=== PATIENT | female | born 1945 | race Caucasian/White ===

== ENCOUNTER 2020-11-01 11:38 | Outpatient (CLI) | payer MEDICARE, SELFPAY ==
[2020-11-01 12:03] LABS: Basophils Percent Auto 0.4 % (0.2-1.2); Eosinophils Absolute Auto 0.1 K/mm3 (0-0.3); Eosinophils Percent Auto 0.9 % (0-4.4); Hematocrit 47.1 % (37.0-47.0); Hemoglobin 14.7 g/dL (12.0-15.0); Immature Granulocyte Absolute 0.03 K/mm3 (0.00-0.031); Immature Granulocyte Percent A 0.3 % (0-0.5); Lymphocytes Percent Auto 49.7 % (18.3-44.2); Mean Corpuscular HGB Conc 31.2 g/dl (32-36); Mean Corpuscular Hemoglobin 30.4 pg (26-34); Mean Corpuscular Volume 97.3 fl (80-100); Mean Platelet Volume 9.5 fl (7.4-10.4); Monocytes Absolute Auto 0.5 K/mm3 (0.1-0.6); Monocytes Percent Auto 4.8 % (2.6-8.5); Neutrophils Absolute Auto 4.5 K/mm3 (1.3-6.7); Neutrophils Percent Auto 43.9 % (45.5-73.1); Platelet Count Result 238 k/mm3 (150-375); Red Blood Count 4.84 M/mm3 (4.2-5.4); Red Cell Distribution Width 12.7 % (11.5-14.5); White Blood Count 10.3 K/mm3 (4.5-10.0)
[2020-11-01 12:48] LABS: Erythrocyte Sedimentation Rate 7 mm/hr (0-20)
[2020-11-01 17:46] LABS: Alanine Aminotransferase 22 U/L (4-35); Albumin Level 4.5 g/dL (3.5-5.1); Alkaline Phosphatase 66 U/L (38-126); Anion Gap 5 mmol/L (8-16); Aspartate Amino Transferase 31 U/L (14-36); Bilirubin,Total 0.7 mg/dL (0.2-1.3); Blood Urea Nitrogen 21 mg/dL (7-17); CRP < 0.5 mg/dL (<1.0); Carbon Dioxide 31 mmol/L (22-30); Chloride 105 mmol/L (98-107); Estimated Glomerular Filt Rate > 60; Glucose 105 mg/dL (65-105); Lactate Dehydrogenase 475 U/L (313-618); Potassium 4.4 mmol/L (3.4-5.0); Sodium 141 mmol/L (137-145)
== END 2020-11-01 11:39 | disposition home or self-care (01) ==
LOC: ANHLAB 11:40
PROVIDERS: PCP Family Medicine; Visit Provider Internal Medicine Hematology & Oncology
DX: D72.820 Lymphocytosis (symptomatic) (principal)
CPT/HCPCS: 36415; 80053; 83615; 85025; 85652; 86140; 88184; 88185

== ENCOUNTER 2021-03-22 09:06 | Outpatient (CLI) | payer MEDICARE, SELFPAY ==
[2021-03-22 09:21] LABS: Basophils Absolute Auto 0.1 K/mm3 (0.0-0.1); Basophils Percent Auto 0.5 % (0.2-1.2); Eosinophils Absolute Auto 0.1 K/mm3 (0-0.3); Eosinophils Percent Auto 1.3 % (0-4.4); Hematocrit 44.8 % (37.0-47.0); Hemoglobin 14.4 g/dL (12.0-15.0); Immature Granulocyte Absolute 0.02 K/mm3 (0.00-0.031); Immature Granulocyte Percent A 0.2 % (0-0.5); Lymphocytes Absolute Auto 6.48 K/mm3 (0.9-3.2); Lymphocytes Percent Auto 58.4 % (18.3-44.2); Mean Corpuscular HGB Conc 32.1 g/dl (32-36); Mean Corpuscular Volume 96.3 fl (80-100); Mean Platelet Volume 9.2 fl (7.4-10.4); Monocytes Absolute Auto 0.6 K/mm3 (0.1-0.6); Monocytes Percent Auto 5.8 % (2.6-8.5); Neutrophils Absolute Auto 3.8 K/mm3 (1.3-6.7); Neutrophils Percent Auto 33.8 % (45.5-73.1); Platelet Count Result 206 k/mm3 (150-375); Red Blood Count 4.65 M/mm3 (4.2-5.4); Red Cell Distribution Width 12.8 % (11.5-14.5); White Blood Count 11.1 K/mm3 (4.5-10.0)
[2021-03-22 12:11] LABS: Alanine Aminotransferase 19 U/L (4-35); Albumin Level 4.4 g/dL (3.5-5.1); Alkaline Phosphatase 63 U/L (38-126); Anion Gap 10 mmol/L (8-16); Aspartate Amino Transferase 30 U/L (14-36); Bilirubin,Total 0.8 mg/dL (0.2-1.3); Blood Urea Nitrogen 23 mg/dL (7-17); Calcium 10.2 mg/dL (8.4-10.2); Carbon Dioxide 29 mmol/L (22-30); Chloride 103 mmol/L (98-107); Estimated Glomerular Filt Rate > 60; Glucose 84 mg/dL (65-105); Sodium 142 mmol/L (137-145)
[2021-03-22 12:19] LABS: Lactate Dehydrogenase 473 U/L (313-618)
== END 2021-03-22 09:07 | disposition home or self-care (01) ==
LOC: ANHLAB 09:10
PROVIDERS: PCP Family Medicine; Visit Provider Internal Medicine Hematology & Oncology
DX: C91.10 Chronic lymphocytic leukemia of B-cell type not having achieved remission (principal)
CPT/HCPCS: 36415; 80053; 83615; 85025

== ENCOUNTER 2021-07-14 09:58 | Outpatient (CLI) | payer MEDICARE, SELFPAY ==
[2021-07-14 11:53] LABS: Basophils Absolute Auto 0.1 K/mm3 (0.0-0.1); Basophils Percent Auto 0.5 % (0.2-1.2); Eosinophils Absolute Auto 0.1 K/mm3 (0-0.3); Eosinophils Percent Auto 1.1 % (0-4.4); Hematocrit 46.1 % (37.0-47.0); Hemoglobin 14.7 g/dL (12.0-15.0); Immature Granulocyte Absolute 0.02 K/mm3 (0.00-0.031); Immature Granulocyte Percent A 0.2 % (0-0.5); Lymphocytes Absolute Auto 6.16 K/mm3 (0.9-3.2); Lymphocytes Percent Auto 57.4 % (18.3-44.2); Mean Corpuscular HGB Conc 31.9 g/dl (32-36); Mean Corpuscular Hemoglobin 31.2 pg (26-34); Mean Corpuscular Volume 97.9 fl (80-100); Mean Platelet Volume 10.2 fl (7.4-10.4); Monocytes Absolute Auto 0.6 K/mm3 (0.1-0.6); Monocytes Percent Auto 5.5 % (2.6-8.5); Neutrophils Absolute Auto 3.8 K/mm3 (1.3-6.7); Neutrophils Percent Auto 35.3 % (45.5-73.1); Platelet Count Result 221 k/mm3 (150-375); Red Blood Count 4.71 M/mm3 (4.2-5.4); Red Cell Distribution Width 12.3 % (11.5-14.5); White Blood Count 10.7 K/mm3 (4.5-10.0)
[2021-07-14 11:59] LABS: Atypical Lymphocytes Present; Platelet Estimate Adequate (Adequate)
[2021-07-14 12:22] LABS: Lactate Dehydrogenase 455 U/L (313-618)
== END 2021-07-14 09:59 | disposition home or self-care (01) ==
LOC: ANHLAB 10:00
PROVIDERS: PCP Family Medicine; Visit Provider Internal Medicine Hematology & Oncology
DX: C91.10 Chronic lymphocytic leukemia of B-cell type not having achieved remission (principal)
CPT/HCPCS: 36415; 83615; 85025

== ENCOUNTER 2022-01-08 10:03 | Outpatient (CLI) | payer MEDICARE, SELFPAY ==
[2022-01-08 10:21] LABS: Basophils Absolute Auto 0.1 K/mm3 (0.0-0.1); Basophils Percent Auto 0.4 % (0.2-1.2); Eosinophils Absolute Auto 0.2 K/mm3 (0-0.3); Eosinophils Percent Auto 1.3 % (0-4.4); Hematocrit 46.5 % (37.0-47.0); Hemoglobin 14.6 g/dL (12.0-15.0); Immature Granulocyte Absolute 0.02 K/mm3 (0.00-0.031); Immature Granulocyte Percent A 0.2 % (0-0.5); Lymphocytes Absolute Auto 6.99 K/mm3 (0.9-3.2); Lymphocytes Percent Auto 59.1 % (18.3-44.2); Mean Corpuscular HGB Conc 31.4 g/dl (32-36); Mean Corpuscular Hemoglobin 32.2 pg (26-34); Mean Corpuscular Volume 102.4 fl (80-100); Mean Platelet Volume 9.1 fl (7.4-10.4); Monocytes Absolute Auto 0.6 K/mm3 (0.1-0.6); Platelet Count Result 208 k/mm3 (150-375); Red Blood Count 4.54 M/mm3 (4.2-5.4); Red Cell Distribution Width 12.4 % (11.5-14.5); White Blood Count 11.8 K/mm3 (4.5-10.0)
[2022-01-08 10:33] LABS: Atypical Lymphocytes Present; Platelet Estimate Adequate (Adequate)
[2022-01-08 17:58] LABS: Alanine Aminotransferase 21 U/L (4-35); Albumin Level 4.6 g/dL (3.5-5.1); Alkaline Phosphatase 63 U/L (38-126); Anion Gap 6 mmol/L (8-16); Aspartate Amino Transferase 30 U/L (14-36); Bilirubin,Total 0.7 mg/dL (0.2-1.3); Blood Urea Nitrogen 25 mg/dL (7-17); Calcium 9.6 mg/dL (8.4-10.2); Carbon Dioxide 30 mmol/L (22-30); Chloride 102 mmol/L (98-107); Estimated Glomerular Filt Rate > 60; Glucose 83 mg/dL (65-110); Lactate Dehydrogenase 452 U/L (313-618); Potassium 3.6 mmol/L (3.4-5.0); Sodium 138 mmol/L (137-145)
== END 2022-01-08 10:04 | disposition home or self-care (01) ==
LOC: ANHLAB 10:08
PROVIDERS: PCP Family Medicine; Visit Provider Internal Medicine Hematology & Oncology
DX: C91.10 Chronic lymphocytic leukemia of B-cell type not having achieved remission (principal)
CPT/HCPCS: 36415; 80053; 83615; 85025

== ENCOUNTER 2022-08-01 09:28 | Outpatient (CLI) | payer MEDICARE, SELFPAY ==
[2022-08-01 18:51] LABS: Hematocrit 45.8 % (37.0-47.0); Hemoglobin 14.9 g/dL (12.0-15.0); Mean Corpuscular HGB Conc 32.5 g/dl (32-36); Mean Corpuscular Hemoglobin 31.4 pg (26-34); Mean Corpuscular Volume 96.4 fl (80-100); Mean Platelet Volume 10.2 fl (7.4-10.4); Platelet Count Result 227 k/mm3 (150-375); Red Blood Count 4.75 M/mm3 (4.2-5.4); White Blood Count 13.3 K/mm3 (4.5-10.0)
[2022-08-01 19:03] LABS: Alanine Aminotransferase 20 U/L (6-35); Albumin Level 4.6 g/dL (3.5-5.1); Alkaline Phosphatase 69 U/L (38-126); Anion Gap 11 mmol/L (8-16); Aspartate Amino Transferase 31 U/L (14-36); Blood Urea Nitrogen 23 mg/dL (7-17); Calcium 9.4 mg/dL (8.4-10.2); Carbon Dioxide 26 mmol/L (22-30); Chloride 102 mmol/L (98-107); Cholesterol 210 mg/dL (0-200); Estimated Glomerular Filt Rate > 60; Glucose 107 mg/dL (65-110); HDL Direct 74 mg/dL; Potassium 3.7 mmol/L (3.4-5.0); Sodium 139 mmol/L (137-145); Triglycerides 76 mg/dL (<150)
[2022-08-01 19:16] LABS: LDL Cholesterol Direct 79 mg/dL
[2022-08-01 19:23] LABS: Band Neutrophils Percent 3 % (0-6); Lymphocytes Absolute Manual 7.44 K/mm3 (1.1-4.5); Monocytes Absolute Manual 1.46 K/mm3 (0.1-0.90); Monocytes Percent Manual 11 % (3-9); Neutrophils Absolute Manual 4.38 K/mm3 (1.7-7.2); Neutrophils Percent Manual 30 % (46-73); Total Cells Counted 100
[2022-08-01 19:24] LABS: Platelet Estimate Adequate (Adequate); Schistocytes None Seen (NORMAL)
== END 2022-08-01 09:29 | disposition home or self-care (01) ==
LOC: ANHGOSHLAB 09:32
PROVIDERS: PCP Family Medicine; Visit Provider Family Medicine
DX: E55.9 Vitamin D deficiency, unspecified (principal); I10 Essential (primary) hypertension; E53.8 Deficiency of other specified B group vitamins; E78.5 Hyperlipidemia, unspecified
CPT/HCPCS: 36415; 80053; 80061; 82306; 82607; 84443; 85025

== ENCOUNTER 2022-10-08 10:27 | Outpatient (CLI) | payer MEDICARE, SELFPAY ==
[2022-10-08 10:44] LABS: Hematocrit 44.8 % (37.0-47.0); Hemoglobin 14.3 g/dL (12.0-15.0); Mean Corpuscular HGB Conc 31.9 g/dl (32-36); Mean Corpuscular Hemoglobin 31.8 pg (26-34); Mean Corpuscular Volume 99.8 fl (80-100); Mean Platelet Volume 9.2 fl (7.4-10.4); Platelet Count Result 211 k/mm3 (150-375); Red Blood Count 4.49 M/mm3 (4.2-5.4); Red Cell Distribution Width 12.5 % (11.5-14.5); White Blood Count 13.1 K/mm3 (4.5-10.0)
[2022-10-08 10:58] LABS: Band Neutrophils Percent 1 % (0-6); Basophils Absolute Manual 0.13 K/mm3 (0.0-0.1); Basophils Percent Manual 1 % (0-1); Neutrophils Absolute Manual 4.06 K/mm3 (1.7-7.2); Neutrophils Percent Manual 30 % (46-73); Nucleated Red Blood Cells 2 %; Platelet Estimate Adequate (Adequate); Schistocytes None Seen (NORMAL); Total Cells Counted 100
[2022-10-08 10:59] LABS: Atypical Lymphocytes Present
[2022-10-08 12:29] LABS: Alanine Aminotransferase 21 U/L (6-35); Albumin Level 4.4 g/dL (3.5-5.1); Alkaline Phosphatase 61 U/L (38-126); Anion Gap 6 mmol/L (8-16); Aspartate Amino Transferase 27 U/L (14-36); Bilirubin,Total 0.9 mg/dL (0.2-1.3); Blood Urea Nitrogen 24 mg/dL (7-17); Calcium 9.1 mg/dL (8.4-10.2); Carbon Dioxide 31 mmol/L (22-30); Chloride 104 mmol/L (98-107); Estimated Glomerular Filt Rate 53; Glucose 143 mg/dL (65-110); Lactate Dehydrogenase 193 U/L (120-246); Sodium 141 mmol/L (137-145)
== END 2022-10-08 10:28 | disposition home or self-care (01) ==
LOC: ANHLAB 10:28
PROVIDERS: PCP Family Medicine; Visit Provider Internal Medicine Hematology & Oncology
DX: C91.10 Chronic lymphocytic leukemia of B-cell type not having achieved remission (principal)
CPT/HCPCS: 36415; 80053; 83615; 85025

== ENCOUNTER 2023-02-20 12:35 | Outpatient (CLI) | payer MEDICARE, SELFPAY ==
[2023-02-20 19:46] LABS: Alanine Aminotransferase 19 U/L (6-35); Albumin Level 4.4 g/dL (3.5-5.1); Alkaline Phosphatase 65 U/L (38-126); Anion Gap 4 mmol/L (8-16); Aspartate Amino Transferase 41 U/L (14-36); Bilirubin,Total 0.8 mg/dL (0.2-1.3); Blood Urea Nitrogen 19 mg/dL (7-17); Calcium 9.3 mg/dL (8.4-10.2); Carbon Dioxide 32 mmol/L (22-30); Chloride 104 mmol/L (98-107); Estimated Glomerular Filt Rate 60; Glucose 87 mg/dL (65-110); Potassium 4.4 mmol/L (3.4-5.0); Sodium 140 mmol/L (137-145)
== END 2023-02-20 12:36 | disposition home or self-care (01) ==
LOC: ANHGOSHLAB 12:37
PROVIDERS: PCP Family Medicine; Visit Provider Family Medicine
DX: C91.10 Chronic lymphocytic leukemia of B-cell type not having achieved remission (principal); E78.5 Hyperlipidemia, unspecified; I10 Essential (primary) hypertension
CPT/HCPCS: 36415; 80053

== ENCOUNTER 2023-07-10 09:40 | Outpatient (CLI) | payer MEDICARE, SELFPAY ==
[2023-07-10 10:14] LABS: Basophils Absolute Auto 0.1 K/mm3 (0.0-0.1); Basophils Percent Auto 0.5 % (0.2-1.2); Eosinophils Absolute Auto 0.2 K/mm3 (0-0.3); Eosinophils Percent Auto 1.6 % (0-4.4); Hematocrit 44.4 % (37.0-47.0); Hemoglobin 14.3 g/dL (12.0-15.0); Immature Granulocyte Absolute 0.03 K/mm3 (0.00-0.031); Immature Granulocyte Percent A 0.2 % (0-0.5); Lymphocytes Absolute Auto 9.72 K/mm3 (0.9-3.2); Lymphocytes Percent Auto 65.9 % (18.3-44.2); Mean Corpuscular HGB Conc 32.2 g/dl (32-36); Mean Corpuscular Hemoglobin 31.6 pg (26-34); Mean Corpuscular Volume 98.2 fl (80-100); Mean Platelet Volume 9.4 fl (7.4-10.4); Monocytes Absolute Auto 0.7 K/mm3 (0.1-0.6); Monocytes Percent Auto 4.5 % (2.6-8.5); Neutrophils Percent Auto 27.3 % (45.5-73.1); Platelet Count Result 193 k/mm3 (150-375); Red Blood Count 4.52 M/mm3 (4.2-5.4); Red Cell Distribution Width 12.4 % (11.5-14.5); White Blood Count 14.8 K/mm3 (4.5-10.0)
[2023-07-10 12:12] LABS: Alanine Aminotransferase 17 U/L (6-35); Albumin Level 4.4 g/dL (3.5-5.1); Alkaline Phosphatase 67 U/L (38-126); Anion Gap 4 mmol/L (8-16); Aspartate Amino Transferase 50 U/L (14-36); Bilirubin,Total 0.8 mg/dL (0.2-1.3); Blood Urea Nitrogen 26 mg/dL (7-17); Calcium 9.3 mg/dL (8.4-10.2); Carbon Dioxide 30 mmol/L (22-30); Chloride 104 mmol/L (98-107); Estimated Glomerular Filt Rate 60; Glucose 107 mg/dL (65-110); Sodium 138 mmol/L (137-145)
== END 2023-07-10 09:41 | disposition home or self-care (01) ==
PROVIDERS: PCP Family Medicine; Visit Provider Internal Medicine Hematology & Oncology
DX: C91.10 Chronic lymphocytic leukemia of B-cell type not having achieved remission (principal)
CPT/HCPCS: 36415; 80053; 85025

== ENCOUNTER 2023-08-07 08:56 | Outpatient (CLI) | payer MEDICARE, SELFPAY ==
[2023-08-07 19:06] LABS: Hematocrit 44.9 % (37.0-47.0); Hemoglobin 14.4 g/dL (12.0-15.0); Mean Corpuscular HGB Conc 32.1 g/dl (32-36); Mean Corpuscular Hemoglobin 31.6 pg (26-34); Mean Corpuscular Volume 98.5 fl (80-100); Mean Platelet Volume 10.3 fl (7.4-10.4); Platelet Count Result 223 k/mm3 (150-375); Red Blood Count 4.56 M/mm3 (4.2-5.4); Red Cell Distribution Width 12.8 % (11.5-14.5); White Blood Count 14.1 K/mm3 (4.5-10.0)
[2023-08-07 19:58] LABS: Vitamin D 25 Hydroxy 33.7 ng/mL
[2023-08-07 20:24] LABS: Alanine Aminotransferase 16 U/L (6-35); Albumin Level 4.5 g/dL (3.5-5.1); Alkaline Phosphatase 67 U/L (38-126); Anion Gap 10 mmol/L (8-16); Aspartate Amino Transferase 38 U/L (14-36); Blood Urea Nitrogen 23 mg/dL (7-17); Calcium 9.7 mg/dL (8.4-10.2); Carbon Dioxide 28 mmol/L (22-30); Chloride 102 mmol/L (98-107); Cholesterol 201 mg/dL (0-200); Estimated Glomerular Filt Rate 60; Glucose 110 mg/dL (65-110); HDL Direct 72 mg/dL; Potassium 4.3 mmol/L (3.4-5.0); Sodium 140 mmol/L (137-145); Triglycerides 74 mg/dL (<150)
[2023-08-07 20:35] LABS: Band Neutrophils Percent 2 % (0-6); Lymphocytes Absolute Manual 7.75 K/mm3 (1.1-4.5); Monocytes Percent Manual 5 % (3-9); Neutrophils Absolute Manual 5.64 K/mm3 (1.7-7.2); Neutrophils Percent Manual 38 % (46-73); Total Cells Counted 100
[2023-08-07 20:36] LABS: Platelet Estimate Adequate (Adequate); Schistocytes None Seen (NORMAL)
[2023-08-07 20:38] LABS: LDL Cholesterol Direct 82 mg/dL
[2023-08-07 21:57] LABS: Hemoglobin A1C 5.5 % (<5.7)
== END 2023-08-07 08:57 | disposition home or self-care (01) ==
PROVIDERS: PCP Family Medicine; Visit Provider Family Medicine
DX: C91.10 Chronic lymphocytic leukemia of B-cell type not having achieved remission (principal); I10 Essential (primary) hypertension; E78.5 Hyperlipidemia, unspecified; E53.8 Deficiency of other specified B group vitamins; R73.9 Hyperglycemia, unspecified; E55.9 Vitamin D deficiency, unspecified
CPT/HCPCS: 36415; 80053; 80061; 82306; 82607; 83036; 84443; 85025

== ENCOUNTER 2024-04-13 09:38 | Outpatient (CLI) | payer MEDICARE, SELFPAY ==
[2024-04-13 09:59] LABS: Basophils Absolute Auto 0.1 K/mm3 (0.0-0.1); Basophils Percent Auto 0.4 % (0.2-1.2); Eosinophils Absolute Auto 0.2 K/mm3 (0-0.3); Eosinophils Percent Auto 1.2 % (0-4.4); Hematocrit 44.1 % (37.0-47.0); Hemoglobin 14.3 g/dL (12.0-15.0); Immature Granulocyte Absolute 0.03 K/mm3 (0.00-0.031); Immature Granulocyte Percent A 0.2 % (0-0.5); Lymphocytes Absolute Auto 9.04 K/mm3 (0.9-3.2); Lymphocytes Percent Auto 64.7 % (18.3-44.2); Mean Corpuscular HGB Conc 32.4 g/dl (32-36); Mean Corpuscular Hemoglobin 31.9 pg (26-34); Mean Corpuscular Volume 98.4 fl (80-100); Mean Platelet Volume 9.4 fl (7.4-10.4); Monocytes Absolute Auto 0.6 K/mm3 (0.1-0.6); Monocytes Percent Auto 4.3 % (2.6-8.5); Neutrophils Absolute Auto 4.1 K/mm3 (1.3-6.7); Neutrophils Percent Auto 29.2 % (45.5-73.1); Platelet Count Result 198 k/mm3 (150-375); Red Blood Count 4.48 M/mm3 (4.2-5.4); Red Cell Distribution Width 12.4 % (11.5-14.5)
[2024-04-13 10:01] LABS: Blood Urea Nitrogen 26 mg/dL (8-26); Carbon Dioxide 29 mmol/L (22-30); Chloride 104 mmol/L (98-109); Estimated Glomerular Filt Rate 48; Glucose 104 mg/dL (70-105); Ionized Calcium (POC) 1.24 mmol/L (1.11-1.31); Potassium 3.8 mmol/L (3.5-4.9); Sodium 141 mmol/L (138-146)
[2024-04-13 10:02] LABS: Atypical Lymphocytes Present; Platelet Estimate Adequate (Adequate); Schistocytes None Seen
== END 2024-04-13 09:39 | disposition home or self-care (01) ==
LOC: ANHLAB 09:40
PROVIDERS: PCP Family Medicine; Visit Provider Internal Medicine Hematology & Oncology
DX: C91.10 Chronic lymphocytic leukemia of B-cell type not having achieved remission (principal)
CPT/HCPCS: 36415; 80047; 85025

== ENCOUNTER 2024-08-26 13:53 | Outpatient (CLI) | payer MEDICARE, SELFPAY ==
[2024-08-26 18:56] LABS: Basophils Absolute Auto 0.1 K/mm3 (0.0-0.1); Basophils Percent Auto 0.6 % (0.2-1.2); Eosinophils Absolute Auto 0.1 K/mm3 (0-0.3); Eosinophils Percent Auto 0.7 % (0-4.4); Hematocrit 48.4 % (37.0-47.0); Hemoglobin 15.5 g/dL (12.0-15.0); Immature Granulocyte Absolute 0.03 K/mm3 (0.00-0.031); Immature Granulocyte Percent A 0.2 % (0-0.5); Lymphocytes Absolute Auto 9.95 K/mm3 (0.9-3.2); Lymphocytes Percent Auto 65.7 % (18.3-44.2); Mean Corpuscular Hemoglobin 31.6 pg (26-34); Mean Corpuscular Volume 98.6 fl (80-100); Mean Platelet Volume 10.4 fl (7.4-10.4); Monocytes Absolute Auto 0.6 K/mm3 (0.1-0.6); Monocytes Percent Auto 4.2 % (2.6-8.5); Neutrophils Absolute Auto 4.3 K/mm3 (1.3-6.7); Neutrophils Percent Auto 28.6 % (45.5-73.1); Platelet Count Result 223 k/mm3 (150-375); Red Blood Count 4.91 M/mm3 (4.2-5.4); Red Cell Distribution Width 12.8 % (11.5-14.5); White Blood Count 15.1 K/mm3 (4.5-10.0)
[2024-08-26 21:11] LABS: Alanine Aminotransferase 19 U/L (6-35); Albumin Level 4.5 g/dL (3.5-5.1); Alkaline Phosphatase 86 U/L (38-126); Anion Gap 6 mmol/L (4-12); Aspartate Amino Transferase 58 U/L (14-36); Bilirubin,Total 0.7 mg/dL (0.2-1.3); Blood Urea Nitrogen 26 mg/dL (7-17); Calcium 9.4 mg/dL (8.4-10.2); Carbon Dioxide 27 mmol/L (22-30); Chloride 105 mmol/L (98-107); Cholesterol 211 mg/dL (0-200); Estimated Glomerular Filt Rate 60; Glucose 95 mg/dL (65-110); HDL Direct 76 mg/dL; Potassium 4.4 mmol/L (3.4-5.0); Sodium 138 mmol/L (137-145); Triglycerides 135 mg/dL (<150)
[2024-08-26 21:22] LABS: LDL Cholesterol Direct 72 mg/dL
[2024-08-26 22:26] LABS: Vitamin D 25 Hydroxy 27.7 ng/mL
== END 2024-08-26 13:54 | disposition home or self-care (01) ==
LOC: ANHGOSHLAB 13:54
PROVIDERS: PCP Family Medicine; Visit Provider Nurse Practitioner Family
DX: E78.5 Hyperlipidemia, unspecified (principal); I10 Essential (primary) hypertension; E55.9 Vitamin D deficiency, unspecified
CPT/HCPCS: 36415; 80053; 80061; 82306; 84443; 85025

== ENCOUNTER 2025-01-22 12:13 | Outpatient (CLI) | payer MEDICARE, SELFPAY ==
[2025-01-22 12:28] LABS: Basophils Absolute Auto 0.1 K/mm3 (0.0-0.1); Basophils Percent Auto 0.5 % (0.2-1.2); Eosinophils Absolute Auto 0.2 K/mm3 (0-0.3); Hematocrit 47.1 % (37.0-47.0); Hemoglobin 15.2 g/dL (12.0-15.0); Immature Granulocyte Absolute 0.04 K/mm3 (0.00-0.031); Immature Granulocyte Percent A 0.3 % (0-0.5); Lymphocytes Absolute Auto 9.83 K/mm3 (0.9-3.2); Lymphocytes Percent Auto 63.5 % (18.3-44.2); Mean Corpuscular HGB Conc 32.3 g/dl (32-36); Mean Corpuscular Hemoglobin 31.7 pg (26-34); Mean Corpuscular Volume 98.3 fl (80-100); Mean Platelet Volume 9.5 fl (7.4-10.4); Monocytes Absolute Auto 0.7 K/mm3 (0.1-0.6); Monocytes Percent Auto 4.7 % (2.6-8.5); Neutrophils Absolute Auto 4.7 K/mm3 (1.3-6.7); Platelet Count Result 221 k/mm3 (150-375); Red Blood Count 4.79 M/mm3 (4.2-5.4); Red Cell Distribution Width 12.4 % (11.5-14.5); White Blood Count 15.5 K/mm3 (4.5-10.0)
[2025-01-22 12:28] LABS: Blood Urea Nitrogen 26 mg/dL (8-26); Carbon Dioxide 28 mmol/L (22-30); Chloride 103 mmol/L (98-109); Estimated Glomerular Filt Rate 53; Glucose 97 mg/dL (70-105); Ionized Calcium (POC) 1.16 mmol/L (1.11-1.31); Potassium 4.1 mmol/L (3.5-4.9); Sodium 141 mmol/L (138-146)
[2025-01-22 12:30] LABS: Platelet Estimate Adequate (Adequate); Schistocytes None Seen
[2025-01-22 12:33] LABS: Atypical Lymphocytes Present
--- OUTSIDE RECORDS SUMMARY | 2025-01-23 13:05 | XMS_ITS | Clinical Summary ---
Author Organization [facility] Chris aguila Hakantx Address [address] [place] [address] Care Team Providers Care Platen Press Operator Apprentice Name Role Phone Emma Dunham MD Primary Care Provider Allergies Active Allergy Reactions Criticality Noted Date Comments Penicillins Anaphylaxis High 11/01/2020 Medications metoprolol succinate (TOPROL XL) 100 mg Extended Release 24 hour tablet TAKE 1 TABLET BY MOUTH EVERY DAY 10/26/2020 Active amLODIPine (NORVASC) 5 mg tablet Take 5 mg by mouth daily. 07/31/2022 Active multivitamin (DAILY-SRIKANTH) tablet Take 1 Tablet by mouth daily. Active Active Problems Problem Noted Date Diagnosed Date CLL (chronic lymphocytic leukemia) 11/17/2020 Resolved Problems Problem Noted Date Diagnosed Date Resolved Date Lymphocytosis 11/01/2020 11/17/2020 Encounters Date Type Department Care Team Description 01/22/2025 12:45 PM CDT Office Visit [facility] Oncology and Hematology - [place] [address] [facility] [address] [place] [address] Jayme Castillo MD CLL (chronic lymphocytic leukemia) ([facility]) (Primary Dx) 11/10/2024 External Device Data STL ABSTRACTION Provider, Abstract from Last 3 Months Family History Relation Name Status Comments Brother Daughter Alive Father Mother Son 1 Alive Son 2 Alive Social History Tobacco Use Types Packs/Day Years Used Date Smoking Tobacco: Never Smokeless Tobacco: Never Tobacco Cessation:Counseling Given: Not Answered Alcohol Use Standard Drinks/Week Comments Yes 0 (1 standard drink = 0.6 oz pur e alcohol) occasional Comments No Sex and Gender Information Value Date Recorded Sex Assigned at Not on file Legal Sex Female 3:55 PM SUPERINTENDENT LAUNDRY Gender Identity Not on file Sexual Orientation Not on file Last Filed Vital Signs Vital Sign Reading Time Taken Comments Blood Pressure 149/89 01/22/2025 12:39 PM CDT Pulse 81 01/22/2025 12:36 PM CDT Temperature 37.2 C (99 F) 01/22/2025 12:36 PM CDT Respiratory Rate 15 01/22/2025 12:36 PM CDT Oxygen Saturation 93% 01/22/2025 12:36 PM CDT Inhaled Oxygen Concentration - - Weight 80.4 kg (177 lb 3.2 oz) 01/22/2025 12:36 PM CDT Height 160 cm (5' 3 ) 01/10/2022 9:47 AM CDT Body Mass Index 31.39 01/10/2022 9:47 AM CDT Plan of Treatment Upcoming Encounters Date Type Department Care Team (Late st Contact Info) Description 10/25/2025 1:00 PM SUPERINTENDENT LAUNDRY Office Visit [facility] Oncology and Hematology [facility] [address] [facility] [address] [place] [address] Jayme Castillo MD [address] [facility] [address] [place] [address] Health Maintenance Due Date Last Done Comments DTAP/TDAP/TD VACCINES (1 - Tdap) 1962 PNEUMOCOCCAL VACCINE 50+ YEA RS (1 of 2 - PCV) 1962 Traditional Medicare (ACO) A nnual Wellness Visit 1962 ZOSTER VACCINE (1 of 2) 1962 OSTEOPOROSIS SCREENING 2008 RSV VACCINE (60+ or ) (1 - 1-dose 75+ series) 2018 COVID-19 Vaccine (3 - Pfizer risk series) 12/23/2020 11/25/2020, 11/04/2020 INFLUENZA VACCINE (#1) 2024 Insurance MEDICARE PART A AND B [facility] [id number] Care Teams Platen Press Operator Apprentice Relationship Specialty Start Date End Date Emma Dunham MD [address] [place] [address] PCP - General Family Practice 11/01/20
== END 2025-01-22 12:14 | disposition home or self-care (01) ==
LOC: ANHLAB 12:15
PROVIDERS: PCP Family Medicine; Visit Provider Internal Medicine Hematology & Oncology
DX: C91.10 Chronic lymphocytic leukemia of B-cell type not having achieved remission (principal)
CPT/HCPCS: 36415; 80047; 85025

== ENCOUNTER 2025-05-26 19:19 | Emergency (ER) | payer MEDICARE, SELFPAY ==
--- NOTE | ~2025-05-26 | XR_ITS ---
XR shoulder LT min 2V 05/26/2025 19:41 Indication: Status post fall. Left shoulder pain. Procedure: 3 views left shoulder Comparison: No prior studies for comparison. Findings: There is a comminuted three-part left humeral neck fracture with displacement of the greater tuberosity. There is inferior subluxation of the humeral head, likely pseudosubluxation. Acromioclavicular joint intact. Osteopenia. Impression: 1: Comminuted mildly displaced left humeral neck fracture. Reviewed, dictated and finalized at location O. Impression: 1: Comminuted mildly displaced left humeral neck fracture.
[2025-05-26 19:42] VITALS: BP 161/98; PULSE 88; RESP 16; TEMP 36.2; O2SAT 97
--- NOTE | 2025-05-26 19:52 | ED_ITS ---
HPI - Extremity Injury (Upper) General Chief Complaint: Extremity Injury, Upper Stated Complaint: INJURED L SHOULDER Time Seen by Provider: 05/26/25 19:52 Source: patient, family and RN notes reviewed Mode of arrival: ambulatory Limitations: no limitations History of Present Illness HPI narrative: 79-year-old female presents Express Care complaining of left shoulder injury. 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 Patient denies hitting her head, loss of consciousness, neck pain go back pain every other injuries. Patient is having a hard time moving her left shoulder to the pain. Patient said injury occurred approximately 1-2 hour ago. Patient denies taking any blood thinners. History of leukemia. Related Data Home Medications ?Medication ?Instructions ?Recorded ?Confirmed ?Last Taken ?Type multivitamin with minerals-folic 1 tablet PO DAILY 05/26/25 Unknown History acid 42 mcg chewable tablet (Centrum MultiGummies Women) Allergies Allergy/AdvReac Type Severity Reaction Status Date / Time Penicillins Allergy Unknown Unknown Verified 05/26/25 19:32 Review of Systems Review of Systems: CONSTITUTIONAL: Denies fever, chills, or sweats. EYES: Denies visual changes, redness, or discharge. ENT: Denies rhinorrhea, congestion, sore throat, or otalgia. CARDIOVASCULAR: Denies chest pain, palpitations, or edema. RESPIRATORY: Denies cough or dyspnea. GASTROINTESTINAL: Denies abdominal pain, nausea, vomiting, or diarrhea. GENITOURINARY: Denies dysuria or hematuria. SKIN: Denies rash, wound, or itching. MUSCULOSKELETAL: Denies back pain, joint pain, or myalgia. Positive for left shoulder injury. NEUROLOGIC: Denies headache, numbness, or weakness. PSYCHIATRIC: Denies anxiety or depression. All other systems reviewed are negative, except as documented in HPI. [facility] Past Medical History Medical History CLL (chronic lymphocytic leukemia) Dyslipidemia Environmental allergies Essential (primary) hypertension Osteoarthritis Surgical History Surgical History History of right cataract surgery (~06/2022) History of left cataract surgery 2018 Family History Family History Other Asthma Social History Social History Smoking status: Former smoker Second hand tobacco smoke exposure: No Smoking end date: 09/23/65 Alcohol intake: current Substance use: never Substance use type: does not use Lack of Transportation: No Lack of Food: Never True Current Housing: I Have Housing Concerned About Future Housing: No Difficulty Paying Gas/Electric Bills: No Difficulty Paying for Meds: No Currently Unemployed: No Education: High School Diploma/GED Difficulty w/ Childcare or Family Care: No Comments At the time of my signature, I reviewed and agree with the nursing past medical, surgical, social, and family history. There is no relevant family history pertinent to the patient complaint. Exam Narrative: GENERAL: This is a well-nourished, well-developed adult, in no apparent distress. They are non ill-appearing, nontoxic appearing. HEAD: normocephalic, atraumatic. No raccoon eyes or Blevins signs. EYES: Sclera clear/white. Vision is grossly intact. Conjunctiva normal. Extraocular movement intact. Pupils PERRLA. EARS: External ears normal Hearing grossly intact. NOSE: External nose normal THROAT: Mucous membranes moist NECK: Neck supple CARDIOVASCULAR: Regular rate and rhythm RESPIRATORY: Respiratory rate normal, respiratory effort nonlabored, no respiratory distress NEURO: awake, alert, and oriented to person, place and time. There were no obvious focal neurologic abnormalities. EXTREMITIES: Left shoulder. There is obvious deformity and swelling to the left shoulder. No bruising or redness. Limited range of motion due to pain. Left shoulder tender to palpate. Capillary refill less than 3 seconds. Left radial Pulse 2 +palpable. Normal sensation. Neurovascular status intact distal injury. Patient able to make a fist, stop sign, thumbs-up, okay sign. Patient able to wiggle her fingers. Strength 5/5. Radial ulnar nerve distribution intact distally. BACK: Nontender without deformity. No cervical, thoracic, lumbar point tenderness, crepitus, or step-offs. Course Course Emergency Course: Portions of this record may have been created with voice recognition software Level of Care: Express Care Visit Vital Signs Vital signs: Vital Signs Temperature 97.2 F L 05/26/25 19:42 Pulse Rate 88 05/26/25 19:42 Respiratory Rate 16 05/26/25 19:42 Blood Pressure 161/98 H 05/26/25 19:42 Pulse Oximetry 97 05/26/25 19:42 Temperature 97.2 F L 05/26/25 19:42 Pulse Rate 88 05/26/25 19:42 Respiratory Rate 16 05/26/25 19:42 Blood Pressure 161/98 H 05/26/25 19:42 Pulse Oximetry 97 05/26/25 19:42 Reviewed Procedures Orthopedic Splinting/Casting Injury #1: Splinting/Casting Date: 05/26/25 Splinting/Casting Time: 20:18 Side: left Upper Extremity Injury Location: shoulder Upper Extremity Immobilizer: sling/shoulder immobilizer Pre-Formed: sling Pre-Procedure Neuro Vascular Exam: normal Post-Procedure Neuro Vascular Exam: normal Additional Comments: Patient tolerated procedure well. MDM - Extremity Injury (Upper) MDM Narrative Medical decision making narrative: X-ray left shoulder reveals a comminuted mildly displaced left humeral neck fracture. Neurovascular status intact distal to injury. Call on-call orthopedist discussed the case with Dr. Calzada who recommends pain medications and sling. He will have the patient follow-up in his office for further evaluation and management. Discussed physical exam findings. Advised supportive measures and signs/symptoms to go to the ER. Pt is appropriate for outpt treatment and f/u. Differential Diagnosis Differential diagnosis: Likely dislocation of shoulder, fracture of humerus, fracture of clavicle and other (Shoulder fracture) Imaging Data Radiologist's impression: ITS Impressions Shoulder X-Ray 05/26/25 19:55 Impression: 1: Comminuted mildly displaced left humeral neck fracture. Critical Care Time Critical Care Time Critical Care Time: No Discharge Plan Discharge Clinical Impression: Fracture of neck of humerus Qualifiers: Encounter type: initial encounter Fracture type: closed Laterality: left Qualified Code(s): S42.212A - Unspecified displaced fracture of surgical neck of left humerus, initial encounter for closed fracture Patient Disposition: Home Condition: Stable Instructions: Scapular Fracture (ED) Additional Instructions: The x-ray of your left shoulder shows a fracture of your proximal humerus. As discussed please follow-up with Dr. Calzada for further evaluation and management of your fracture. Please wear your sling at all times. May apply ice to the area of 20 minutes at a time few times a day. You may take ibuprofen 600 mg to 800 mg every 6-8 hours. Do not exceed more than 800 mg of ibuprofen per dose. Do not exceed more than 3200 mg ibuprofen in a day. You may take up to 1000 mg Tylenol every 6-8 hours. Do not exceed 1000 mg per dose, do exceed more than 4000 mg of Tylenol in a day. Take the [place] is as directed. [place] does contain 325 mg of Tylenol in each pill do not exceed more than a 1000 mg at a time. [place] may make you drowsy so do not drive or operate machinery while taking it. Follow-up with Dr. Calzada in 3-5 days. Please go to the ER if you lose your pulse in your left arm, your arm turns blue, cold, numb, excruciating pain, or any serious concerns. Patient Language: Japanese Prescriptions: New hydrocodone-acetaminophen 5-325 mg tablet 1 tablet PO Q6H PRN (Reason: pain) Qty: 30 0RF No Action Centrum MultiGummies Women 42 mcg tablet,chewable 1 tablet PO DAILY amlodipine 5 mg tablet 5 mg PO DAILY Qty: 90 1RF metoprolol succinate 100 mg tablet extended release 24 hr 100 mg PO DAILY Qty: 90 1RF cholecalciferol (vitamin D3) 50 mcg (2,000 unit) capsule 50 mcg PO DAILY Qty: 90 0RF Follow-up/Referrals: Sloane Nicole NP [Primary Care Provider, Family Practice] Kevin Calzada MD [Physician, Orthopedics] - 3 Days Referral Note: Humerus neck fracture Clinical Impression: Fracture of neck of humerus Time of Disposition: 20:15
== END 2025-05-26 20:20 | disposition home or self-care (01) ==
PROVIDERS: PCP Nurse Practitioner Family
DX: S42.212A Unspecified displaced fracture of surgical neck of left humerus, initial encounter for closed fracture (principal); W19.XXXA Unspecified fall, initial encounter; I10 Essential (primary) hypertension; M19.90 Unspecified osteoarthritis, unspecified site; E78.5 Hyperlipidemia, unspecified; Z85.6 Personal history of leukemia
CPT/HCPCS: 73030; 99214; A4565; G0463

== ENCOUNTER 2025-06-15 09:22 | Outpatient (CLI) | payer MEDICARE, SELFPAY ==
--- OUTSIDE RECORDS SUMMARY | 2025-06-15 10:03 | XMS_ITS | Clinical Summary ---
Author Organization [facility] Address [address] [place] [address] Care Team Providers Care Porcelain Buildup Assistant Name Role Phone Emma Dunham MD Primary [...] Encounters Date Type Department Care Team Description 05/25/2025 External Device Data STL ABSTRACTION Provider, Abstract 05/11/2025 External Device Data STL ABSTRACTION Provider, Abstract 05/04/2025 External Device Data STL ABSTRACTION Provider, Abstract 04/07/2025 External Device Data STL ABSTRACTION Provider, Abstract 04/06/2025 External Device Data STL ABSTRACTION Provider, Abstract [...] on file Legal Sex Female 3:55 PM 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 Gender Identity Not on file Sexual Orientation [...] 12:36 PM CDT Height 160 cm (5' 3) 01/10/2022 9:47 AM CDT Body Mass Index 31.39 01/10/2022 9:47 AM CDT Plan of Treatment Upcoming Encounters Date Type Department Care Team (Late st Contact Info) Description 10/25/2025 1:00 PM 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 Office Visit [facility] Oncology and Hematology - [place] [address] [facility] [address] [place] [address] Jayme Castillo MD [address] [facility] [address] [place] [address] Health Maintenance Due Date Last Done Comments DTAP/TDAP/TD VACCINES (1 - Tdap) 1964 PNEUMOCOCCAL VACCINE 50+ YEA RS (1 of 2 - PCV) 1962 ZOSTER VACCINE (1 of 2) 1962 OSTEOPOROSIS SCREENING 2008 RSV VACCINE (60+ or ) (1 - 1-dose 75+ series) 2018 INFLUENZA VACCINE (#1) 2025 COVID-19 Vaccine (3 - 2024- season) 05/24/202501/2021, 11/04/2020 Insurance MEDICARE PART A AND B [facility] [id number] Care Teams Porcelain Buildup Assistant Relationship Specialty Start Date End Date Emma Dunham MD [address] [place] [phone] PCP - General Family Practice 11/01/20
[2025-06-15 11:05] LABS: Hematocrit 39.1 % (37.0-47.0); Hemoglobin 12.2 g/dL (12.0-15.0); Immature Granulocyte Percent A 0.3 % (0-0.5); Lymphocytes Absolute Auto 9.73 K/mm3 (0.9-3.2); Mean Corpuscular HGB Conc 31.2 g/dl (32-36); Mean Corpuscular Hemoglobin 31.6 pg (26-34); Mean Corpuscular Volume 101.3 fl (80-100); Nucleated Red Blood Cells Absolute Auto 0.030 K/mm3 (0.0-0.012); Nucleated Red Blood Cells Perc 0.2 % (0.0-0.2); Platelet Count Result 265 k/mm3 (150-375); Red Blood Count 3.86 M/mm3 (4.2-5.4); White Blood Count 15.6 K/mm3 (4.5-10.0)
[2025-06-15 11:19] LABS: Alanine Aminotransferase 35 U/L (6-35); Albumin Level 4.0 g/dL (3.5-5.1); Alkaline Phosphatase 80 U/L (38-126); Anion Gap 7 mmol/L (4-12); Aspartate Amino Transferase 46 U/L (14-36); Bilirubin,Total 0.9 mg/dL (0.2-1.3); Blood Urea Nitrogen 18 mg/dL (7-17); Calcium 9.1 mg/dL (8.4-10.2); Carbon Dioxide 28 mmol/L (22-30); Chloride 104 mmol/L (98-107); Cholesterol 173 mg/dL (0-200); Estimated Glomerular Filt Rate > 60; Glucose 105 mg/dL (65-110); HDL Direct 60 mg/dL; Magnesium 2.1 mg/dL (1.6-2.3); Potassium 3.8 mmol/L (3.4-5.0); Sodium 139 mmol/L (137-145); Total Protein 7.2 g/dL (6.3-8.2); Triglycerides 91 mg/dL (<150)
== END 2025-06-15 09:23 | disposition home or self-care (01) ==
LOC: ANHGOSHLAB 09:24
PROVIDERS: PCP Nurse Practitioner Family; Visit Provider Nurse Practitioner Family
DX: E78.5 Hyperlipidemia, unspecified (principal); R60.0 Localized edema; I10 Essential (primary) hypertension
CPT/HCPCS: 36415; 80053; 80061; 83735; 85025

== ENCOUNTER 2025-06-25 13:48 | Outpatient (CLI) | payer MEDICARE, SELFPAY ==
--- OUTSIDE RECORDS SUMMARY | 2025-06-25 13:51 | XMS_ITS | Clinical Summary ---
Author Organization [facility] Address [address] [address] Care Team Providers Care Regulatory Technician Name Role Phone Emma Dunham MD Primary [...] on file Legal Sex Female 3:55 PM PEDIATRIC NP Gender Identity Not on file Sexual Orientation [...] st Contact Info) Description 10/25/2025 1:00 PM PEDIATRIC NP Office Visit [facility] Oncology and Hematology - [place] [address] [facility] [address] [place] [address] Jayme Castillo MD [address] [facility] [address] [place] [address] Health Maintenance Due Date Last [...] 11/04/2020 Insurance MEDICARE PART A AND B [facility] [id number] Care Teams Regulatory Technician Relationship Specialty Start Date End Date Emma Dunham MD [address] [place] [place] [address] PCP - General Family Practice 11/01/20
[2025-06-25 18:18] LABS: Hematocrit 39.3 % (37.0-47.0); Hemoglobin 12.1 g/dL (12.0-15.0); Immature Granulocyte Percent A 0.2 % (0-0.5); Lymphocytes Absolute Auto 9.59 K/mm3 (0.9-3.2); Mean Corpuscular HGB Conc 30.8 g/dl (32-36); Mean Corpuscular Hemoglobin 31.4 pg (26-34); Mean Corpuscular Volume 102.1 fl (80-100); Nucleated Red Blood Cells Absolute Auto 0.000 K/mm3 (0.0-0.012); Nucleated Red Blood Cells Perc 0.0 % (0.0-0.2); Platelet Count Result 262 k/mm3 (150-375); Red Blood Count 3.85 M/mm3 (4.2-5.4); White Blood Count 15.6 K/mm3 (4.5-10.0)
[2025-06-28 13:53] LABS: Anion Gap 8 mmol/L (4-12); Blood Urea Nitrogen 20 mg/dL (7-17); Calcium 9.6 mg/dL (8.4-10.2); Carbon Dioxide 28 mmol/L (22-30); Chloride 102 mmol/L (98-107); Estimated Glomerular Filt Rate > 60; Glucose 76 mg/dL (65-110); Potassium 4.7 mmol/L (3.4-5.0); Sodium 138 mmol/L (137-145)
== END 2025-06-25 13:49 | disposition home or self-care (01) ==
LOC: ANHGOSHLAB 13:49
PROVIDERS: PCP Nurse Practitioner Family; Visit Provider Nurse Practitioner Family
DX: R60.0 Localized edema (principal)
CPT/HCPCS: 36415; 80048; 83880; 85025

== ENCOUNTER 2025-06-30 14:53 | Outpatient (CLI) | payer MEDICARE, SELFPAY ==
[2025-06-30 19:26] LABS: NT Pro B Type Natriuretic Pept 708 pg/mL (19.9-100)
== END 2025-06-30 14:54 | disposition home or self-care (01) ==
LOC: ANHGOSHLAB 14:54
PROVIDERS: PCP Nurse Practitioner Family; Visit Provider Nurse Practitioner Family
DX: R06.00 Dyspnea, unspecified (principal)
CPT/HCPCS: 36415; 83880

== ENCOUNTER 2025-07-08 14:29 | Outpatient (CLI) | payer MEDICARE, SELFPAY ==
--- OUTSIDE RECORDS SUMMARY | 2025-07-08 16:35 | XMS_ITS | Clinical Summary ---
Author Organization [facility] Chris Mcclendonchayito Address [address] [place] [address] Care Team Providers Care Yam Curer Name Role Phone Emma Dunham MD Primary [...] on file Legal Sex Female 3:55 PM SLEEVE WHEEL MAKER Gender Identity Not on file Sexual Orientation [...] st Contact Info) Description 10/25/2025 1:00 PM SLEEVE WHEEL MAKER Office Visit [facility] Oncology and Hematology [facility] [address] [facility] [address] [place] [address] Jayme Castillo MD [address] [facility] [address] [place] [address] Health Maintenance Due Date Last [...] 11/04/2020 Insurance MEDICARE PART A AND B [facility] [id number] Care Teams Yam Curer Relationship Specialty Start Date End Date Emma Dunham MD [address] [place] [address] PCP - General Family Practice 11/01/20
[2025-07-08 19:32] LABS: NT Pro B Type Natriuretic Pept 566 pg/mL (19.9-100)
[2025-07-08 19:58] LABS: Alanine Aminotransferase 16 U/L (6-35); Albumin Level 4.2 g/dL (3.5-5.1); Alkaline Phosphatase 91 U/L (38-126); Anion Gap 8 mmol/L (4-12); Aspartate Amino Transferase 37 U/L (14-36); Bilirubin,Total 0.5 mg/dL (0.2-1.3); Blood Urea Nitrogen 25 mg/dL (7-17); Calcium 9.3 mg/dL (8.4-10.2); Carbon Dioxide 28 mmol/L (22-30); Chloride 104 mmol/L (98-107); Estimated Glomerular Filt Rate > 60; Glucose 88 mg/dL (65-110); Magnesium 2.2 mg/dL (1.6-2.3); Potassium 3.7 mmol/L (3.4-5.0); Sodium 140 mmol/L (137-145); Total Protein 7.5 g/dL (6.3-8.2)
== END 2025-07-08 14:30 | disposition home or self-care (01) ==
PROVIDERS: PCP Nurse Practitioner Family; Visit Provider Nurse Practitioner Family
DX: R60.0 Localized edema (principal); R79.89 Other specified abnormal findings of blood chemistry; R06.02 Shortness of breath
CPT/HCPCS: 36415; 80053; 83735; 83880

== ENCOUNTER 2025-07-23 12:36 | Outpatient (CLI) | payer MEDICARE, SELFPAY ==
--- OUTSIDE RECORDS SUMMARY | 2025-07-23 12:38 | XMS_ITS | Clinical Summary ---
Author Organization [facility] Chris Mcclendonchayito Address [address] [place] [address] Care Team Providers Care Sawmill Moulder Operator Name Role Phone Emma Dunham MD Primary [...] on file Legal Sex Female 3:55 PM CONSTRUCTION CREW MEMBER Gender Identity Not on file Sexual Orientation [...] st Contact Info) Description 10/25/2025 1:00 PM CONSTRUCTION CREW MEMBER Office Visit [facility] Oncology and Hematology - [place] [address] [facility] [address] [place] [address] Jayme Castillo MD [address] [facility] [address] [place] [address] Health Maintenance Due Date Last Done Comments DTAP/TDAP/TD VACCINES (1 - Tdap) 1962 PNEUMOCOCCAL VACCINE 50+ YEA RS (1 of 2 - PCV) 1962 ZOSTER VACCINE (1 of 2) 1962 OSTEOPOROSIS SCREENING 2008 RSV VACCINE (60+ or ) (1 - 1-dose 75+ series) 2018 INFLUENZA VACCINE (#1) 2025 COVID-19 Vaccine (3 - season) 05/24/202501/2021, 11/04/2020 Insurance MEDICARE PART A AND B [facility] [id number] Care Teams Sawmill Moulder Operator Relationship Specialty Start Date End Date Emma Dunham MD [address] [place] [phone] PCP - General Family Practice 11/01/20
[2025-07-23 14:23] LABS: Hematocrit 42.2 % (37.0-47.0); Hemoglobin 13.2 g/dL (12.0-15.0); Mean Corpuscular HGB Conc 31.3 g/dl (32-36); Mean Corpuscular Hemoglobin 32.0 pg (26-34); Mean Corpuscular Volume 102.2 fl (80-100); Platelet Count Result 236 k/mm3 (150-375); Red Blood Count 4.13 M/mm3 (4.2-5.4); White Blood Count 16.7 K/mm3 (4.5-10.0)
[2025-07-23 14:28] LABS: Alanine Aminotransferase 15 U/L (6-35); Albumin Level 4.3 g/dL (3.5-5.1); Alkaline Phosphatase 79 U/L (38-126); Anion Gap 6 mmol/L (4-12); Aspartate Amino Transferase 53 U/L (14-36); Bilirubin,Total 0.8 mg/dL (0.2-1.3); Blood Urea Nitrogen 25 mg/dL (7-17); Calcium 9.3 mg/dL (8.4-10.2); Carbon Dioxide 30 mmol/L (22-30); Chloride 102 mmol/L (98-107); Estimated Glomerular Filt Rate > 60; Glucose 88 mg/dL (65-110); Magnesium 2.1 mg/dL (1.6-2.3); Potassium 4.0 mmol/L (3.4-5.0); Sodium 138 mmol/L (137-145); Total Protein 7.7 g/dL (6.3-8.2)
[2025-07-23 14:48] LABS: Band Neutrophils Percent 2 % (0-6); Basophils Absolute Manual 0.16 K/mm3 (0.0-0.1); Basophils Percent Manual 1 % (0-1); Lymphocytes Absolute Manual 4.67 K/mm3 (1.1-4.5); Lymphocytes Percent Manual 28.0 % (18-44); Monocytes Absolute Manual 0.83 K/mm3 (0.1-0.90); Monocytes Percent Manual 5 % (3-9); Neutrophils Absolute Manual 11.02 K/mm3 (1.3-6.7); Neutrophils Percent Manual 64 % (46-73); Schistocytes None Seen; Total Cells Counted 100
== END 2025-07-23 12:37 | disposition home or self-care (01) ==
LOC: ANHGOSHLAB 12:37
PROVIDERS: PCP Nurse Practitioner Family; Visit Provider Nurse Practitioner Family
DX: R60.0 Localized edema (principal)
CPT/HCPCS: 36415; 80053; 83735; 85025

== ENCOUNTER 2025-07-25 15:11 | Emergency (ER) | payer MEDICARE, SELFPAY ==
--- NOTE | ~2025-07-25 | XR_ITS ---
EXAMINATION: XR elbow LT min 3V, 07/25/2025 15:30 STEM MOUNTER HISTORY: fall- elbow/ proxforearm/ distal humerous hematoma COMPARISON: No comparisons available. Findings: No acute fracture or malalignment. No significant degenerative changes. Soft tissue edema noted with a large probable subcutaneous hematoma. Impression: Posttraumatic soft tissue changes. CT suggested to further assess. Reviewed, dictated and finalized at location P. MOUNTER Impression: Posttraumatic soft tissue changes. CT suggested to further assess.
--- NOTE | 2025-07-25 15:13 | ED.UPPEXIN ---
HPI - Extremity Injury (Upper) General Chief Complaint: Extremity Injury, Upper Stated Complaint: L ARM INJURY Time Seen by Provider: 07/25/25 15:12 Source: patient Mode of arrival: ambulatory Limitations: no limitations History of Present Illness HPI narrative: Bridgette is an 80-year-old female patient presenting to the clinic today with complaints of right arm pain/injury at 2:00 p.m. today. She reports she fell forward when getting out of the car and landed on the left arm/elbow. Has a huge hematoma over the left elbow. Has taken Advil prior to arrival. Denies hitting her head or any loss of consciousness. Recent history left humerus neck fracture 7 weeks ago Related Data Home Medications ?Medication ?Instructions ?Recorded ?Confirmed ?Last Taken ?Type multivitamin with minerals-folic 1 tablet PO DAILY 03/17/25 07/23/25 Unknown History acid 42 mcg chewable tablet (Centrum MultiGummies Women) acetaminophen 500 mg tablet 1,000 mg PO Q6H PRN 06/10/25 07/23/25 Unknown History (Tylenol Extra Strength) ibuprofen 200 mg tablet (Advil) 400 mg PO Q6H PRN 06/10/25 07/23/25 Unknown History prednisone 10 mg tablets in a dose 10 mg PO DIRECTED 06/25/25 07/23/25 Unknown History pack doxycycline hyclate 100 mg capsule 100 mg PO BID 07/23/25 07/23/25 Unknown History triamcinolone acetonide 0.05 % 1 applic topical DAILY 07/23/25 07/23/25 Unknown History topical ointment Allergies Allergy/AdvReac Type Severity Reaction Status Date / Time Penicillins Allergy Unknown Unknown Verified 07/25/25 15:25 Review of Systems Review of Systems: Pertinent positives per HPI. Patient denies any fever, chills, rash, headache, visual changes, dizziness, cough, runny nose, sore throat, shortness of breath, chest pain, palpitations, nausea, vomiting, diarrhea, constipation, abdominal pain, or any urinary issues. [facility] Past Medical History Medical History Humerus fracture CLL (chronic lymphocytic leukemia) Dyslipidemia Environmental allergies Essential (primary) hypertension Osteoarthritis Surgical History Surgical History History of right cataract surgery (~06/2022) History of left cataract surgery 2018 Family History Family History Other Asthma Social History Social History Smoking status: Former smoker Second hand tobacco smoke exposure: No Smoking end date: 09/23/65 Alcohol intake: current Substance use: never Substance use type: does not use Lack of Transportation: No Lack of Food: Never True Current Housing: I Have Housing Concerned About Future Housing: No Difficulty Paying Gas/Electric Bills: No Difficulty Paying for Meds: No Currently Unemployed: No Education: High School Diploma/GED Difficulty w/ Childcare or Family Care: No Comments At the time of my signature, I reviewed and agree with the nursing past medical, surgical, social, and family history. There is no relevant family history pertinent to the patient complaint. Exam Narrative: General: Well-developed, well nourished, in no apparent distress Head: Normocephalic, atraumatic. Cardio: Regular rate and rhythm, s1 and s2 normal, no murmur appreciated. Resp: Clear to auscultation bilaterally, no rhonchi, rales, wheezing or rubs. Musculoskeletal: No deformity, hematoma measuring [id number] to the right volar elbow with swelling to the distal humerus and proximal forearm, tender to palpation over the hematoma, grossly normal range of motion, muscle strength strong and equal, peripheral pulse strong, no edema, no cyanosis, normal gait and station Course Course Emergency Course: Portions of this record may have been created with voice recognition software. Level of Care: Express Care Visit Vital Signs Vital signs: Vital Signs Temperature 36.4 C L 07/25/25 15:26 Pulse Rate 108 H 07/25/25 15: Respiratory Rate 16 07/25/25 15: Blood Pressure 156/86 H 07/25/25 15: Pulse Oximetry 97 07/25/25 15:26 Temperature 36.4 C L 07/25/25 15: Pulse Rate 108 H 07/25/25 15:26 Respiratory Rate 16 07/25/25 15:26 Blood Pressure 156/86 H 07/25/25 15: Pulse Oximetry 97 07/25/25 15:26 Vital signs reviewed MDM - Extremity Injury (Upper) MDM Narrative Medical decision making narrative: At the time of visit patient is resting comfortably on the exam table. Patient appears to be nontoxic. Complaints of right arm pain/injury at 2:00 p.m. today. She reports she fell forward when getting out of the car and landed on the left arm/elbow. Has a huge hematoma over the left elbow. Has taken Advil prior to arrival. Denies hitting her head or any loss of consciousness. Recent history left humerus neck fracture 7 weeks ago On exam patient has a large hematoma measuring 10cm-x15cm to the right volar elbow with swelling to the distal humerus and proximal forearm, tender to palpation over the hematoma, grossly normal range of motion, x-ray of the left elbow was ordered. Diagnosis: X-ray of the left elbow was performed and was negative for any acute fracture or malalignment. Does show a possible subcutaneous hematoma Plan: I suspect patient has a large hematoma to the left arm/elbow. Ice pack was given and Anjel wrap was applied. No obvious sign of fracture or malalignment on x-rays. Recommend follow-up with PCP this week when swelling goes down and may repeat x-rays or potentially have CT done if needed. Patient has full range of motion of the left elbow at this time and is not complaining of any moderate or severe pain. Supportive measures were discussed with the patient and they voiced understanding discharge instructions and agrees to treatment plan. Return precautions reviewed Differential Diagnosis Differential diagnosis: Likely fracture of humerus and other (hematoma, contusion, radial fracture) Imaging Data Radiologist's impression: ITS Impressions Elbow X-Ray 07/25/25 15:46 Impression: Posttraumatic soft tissue changes. CT suggested to further assess. Discharge Plan Discharge Clinical Impression: Hematoma Patient Disposition: Home Condition: Stable Instructions: Antibiotic Form, Hematoma (ED) Additional Instructions: X-ray shows likely subcutaneous hematoma-no obvious fracture or malalignment visible Rest, ice, elevate, and wear anjel wrap as directed Apply ice pack to the area for 20 minutes at a time 20 minutes on/20 minutes off for the next 48 hours. May take Tylenol for pain as discussed for the next 24 hours Avoid taking any NSAIDs-Aleve, ibuprofen, Motrin, naproxen, or aspirin Watch for signs and symptoms of infection-redness, swelling, increase in pain, fever, or streaking Some swelling and tingling may be normal in due to the size of the hematoma but if it makes it wear your fingers are not blanchable and your hand/fingers are numb recommend going to the emergency room Follow up with your PCP in 3-5 days Patient Language: Cymro Prescriptions: No Action Centrum MultiGummies Women 42 mcg tablet,chewable 1 tablet PO DAILY acetaminophen [Tylenol Extra Strength] 500 mg tablet 1,000 mg PO Q6H PRN ibuprofen [Advil] 200 mg tablet 400 mg PO Q6H PRN ergocalciferol (vitamin D2) [Vitamin D2] 1,250 mcg (50,000 unit) capsule 1,250 mcg PO WEEKLY Qty: 12 1RF prednisone 10 mg tablets,dose pack 10 mg PO DIRECTED Rx Instructions: see taper instructions amlodipine 5 mg tablet 5 mg PO DAILY Qty: 90 1RF metoprolol succinate 100 mg tablet extended release 24 hr 100 mg PO DAILY Qty: 90 1RF doxycycline hyclate 100 mg capsule 100 mg PO BID triamcinolone acetonide 0.05 % ointment 1 applic topical DAILY mupirocin calcium 2 % cream 1 applic topical BID Qty: 30 0RF furosemide [Lasix] 20 mg tablet 20 mg PO .qod Qty: 7 0RF clindamycin HCl [Cleocin HCl] 300 mg capsule 300 mg PO Q8H 10 Days Qty: 30 0RF potassium chloride [Klor-Con 10] 10 mEq tablet extended release 10 meq PO .qod Qty: 7 0RF Rx Instructions: Take with Lasix. Follow-up/Referrals: Sarah Warren APRN [Primary Care Provider, [facility]] Time of Disposition: 15:53 Quality NIHSS Nursing Documentation ED NIHSS nursing documentation: reviewed/agree
[2025-07-25 15:26] VITALS: BP 156/86; PULSE 108; RESP 16; TEMP 36.4; O2SAT 97
== END 2025-07-25 16:15 | disposition home or self-care (01) ==
PROVIDERS: Emergency Provider Nurse Practitioner Family; PCP Nurse Practitioner Family
DX: S50.01XA Contusion of right elbow, initial encounter (principal); V48.4XXA Person boarding or alighting a car injured in noncollision transport accident, initial encounter; Z87.891 Personal history of nicotine dependence; I10 Essential (primary) hypertension; E78.5 Hyperlipidemia, unspecified; M19.90 Unspecified osteoarthritis, unspecified site; Z85.6 Personal history of leukemia
CPT/HCPCS: 73080; 99213; G0463

== ENCOUNTER 2025-08-12 11:11 | Outpatient (CLI) | payer MEDICARE, SELFPAY ==
[2025-08-12 12:47] LABS: Hematocrit 40.2 % (37.0-47.0); Hemoglobin 12.5 g/dL (12.0-15.0); Mean Corpuscular HGB Conc 31.1 g/dl (32-36); Mean Corpuscular Hemoglobin 31.7 pg (26-34); Mean Corpuscular Volume 102.0 fl (80-100); Platelet Count Result 272 k/mm3 (150-375); Red Blood Count 3.94 M/mm3 (4.2-5.4); White Blood Count 15.7 K/mm3 (4.5-10.0)
[2025-08-12 13:05] LABS: Alanine Aminotransferase 18 U/L (6-35); Albumin Level 4.3 g/dL (3.5-5.1); Alkaline Phosphatase 81 U/L (38-126); Anion Gap 8 mmol/L (4-12); Aspartate Amino Transferase 42 U/L (14-36); Bilirubin,Total 0.7 mg/dL (0.2-1.3); Blood Urea Nitrogen 18 mg/dL (7-17); Calcium 9.1 mg/dL (8.4-10.2); Carbon Dioxide 30 mmol/L (22-30); Chloride 100 mmol/L (98-107); Estimated Glomerular Filt Rate > 60; Glucose 142 mg/dL (65-110); Magnesium 2.1 mg/dL (1.6-2.3); Potassium 3.3 mmol/L (3.4-5.0); Sodium 138 mmol/L (137-145); Total Protein 7.6 g/dL (6.3-8.2)
[2025-08-12 13:09] LABS: NT Pro B Type Natriuretic Pept 684 pg/mL (19.9-100)
[2025-08-12 13:41] LABS: Total Cells Counted 100
[2025-08-12 13:42] LABS: Band Neutrophils Percent 1 % (0-6); Lymphocytes Absolute Manual 10.99 K/mm3 (1.1-4.5); Lymphocytes Percent Manual 70 % (18-44); Monocytes Absolute Manual 0.15 K/mm3 (0.1-0.90); Monocytes Percent Manual 1 % (3-9); Neutrophils Absolute Manual 4.55 K/mm3 (1.3-6.7); Neutrophils Percent Manual 28 % (46-73); Smudge Cells PRESENT
[2025-08-12 13:46] LABS: Ovalocytes Occasional
[2025-08-12 13:47] LABS: Schistocytes None Seen
--- OUTSIDE RECORDS SUMMARY | 2025-08-12 13:57 | XMS_ITS | Clinical Summary ---
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 Gender Identity Not on file Sexual Orientation [...] st Contact Info) Description 10/25/2025 1:00 PM UNIVERSITY CONTROLLER Office Visit [facility] Oncology and Hematology - Jitendra [address] [facility] [address] [place] [address] Jayme Castillo MD [address] [facility] [address] [place] [address] Health Maintenance Due Date Last [...] 11/04/2020 Insurance MEDICARE PART A AND B [facility] [id number] Care Teams Linux Network Engineer Relationship Specialty Start Date End Date Emma Dunham MD [address] [place] [address] PCP - General Family Practice 11/01/20
[2025-08-12 15:25] LABS: Vitamin B12 422.0 pg/mL (239-931)
[2025-08-13 07:32] LABS: Ferritin 242.00 ng/mL (11.1-264)
== END 2025-08-12 11:12 | disposition home or self-care (01) ==
PROVIDERS: PCP Family Medicine; Visit Provider Nurse Practitioner Family
DX: R60.9 Edema, unspecified (principal); R79.89 Other specified abnormal findings of blood chemistry; R06.02 Shortness of breath; I10 Essential (primary) hypertension; E78.5 Hyperlipidemia, unspecified; D64.9 Anemia, unspecified; R60.0 Localized edema
CPT/HCPCS: 36415; 80053; 82607; 82728; 82746; 83735; 83880; 85025

== ENCOUNTER 2025-08-16 11:19 | Outpatient (CLI) | payer MEDICARE, SELFPAY ==
--- NOTE | ~2025-08-16 | XR_ITS ---
EXAMINATION: XR humerus LT, 08/16/2025 11:35 IGNITER ASSEMBLER HISTORY: Unspecified fall, fell twice once in may, COMPARISON: No comparisons available. Findings: Moderate osteopenia. There is an impacted healing fracture of the humeral neck. Severe degenerative changes of the glenohumeral joint. Soft tissues unremarkable. Impression: Healing humeral neck fracture Reviewed, dictated and finalized at location P. TER ASSEMBLER Impression: Healing humeral neck fracture
--- NOTE | ~2025-08-16 | XR_ITS ---
XR cervical spine 4-5V Indication: Unspecified fall, fell twice, once in may, oct Comparison: None Findings: Moderate osteopenia. Grade 1 anterolisthesis of C4 on C5 C5 on C6 C6 on C7. No acute fracture is identified. Severe loss of disc height at C4-5 C5-6 and C6-7, there is no subluxation with flexion or extension. Soft tissues unremarkable Impression: No acute abnormality. Reviewed, dictated and finalized at location P. ATIENT CODING SPECIALIST Impression: No acute abnormality.
--- NOTE | ~2025-08-16 | XR_ITS ---
EXAMINATION: XR shoulder LT min 2V, 08/16/2025 11:35 NUTRITION INTERNSHIP HISTORY: Unspecified fall, once in may, COMPARISON: No comparisons available. Findings: Impacted healing fracture of the humeral neck. Moderate osteopenia. Severe degenerative changes. Soft tissues unremarkable. Impression: Healing fracture Reviewed, dictated and finalized at location P. ITION INTERNSHIP Impression: Healing fracture
== END 2025-08-16 11:20 | disposition home or self-care (01) ==
LOC: GOSHIMG 11:20
PROVIDERS: PCP Nurse Practitioner Family; Visit Provider Nurse Practitioner Family
DX: M53.82 Other specified dorsopathies, cervical region (principal); S42.212A Unspecified displaced fracture of surgical neck of left humerus, initial encounter for closed fracture; X58.XXXA Exposure to other specified factors, initial encounter; W19.XXXA Unspecified fall, initial encounter
CPT/HCPCS: 72050; 73030; 73060

== ENCOUNTER 2025-08-17 13:53 | Outpatient (CLI) | payer MEDICARE, SELFPAY ==
--- OUTSIDE RECORDS SUMMARY | 2025-08-17 15:48 | XMS_ITS | Clinical Summary ---
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 Gender Identity Not on file Sexual Orientation [...] st Contact Info) Description 10/25/2025 1:00 PM LANDCARE OFFICER Office Visit [facility] Oncology and Hematology - Jitendra [address] [facility] [address] [place] [address] Jayme Castillo MD [address] [facility] [address] [place] [address] Health Maintenance Due Date Last Done Comments DTAP/TDAP/TD VACCINES (1 - Tdap) 1962 PNEUMOCOCCAL VACCINE 50+ YEA RS (1 of 2 - PCV) 1962 ZOSTER VACCINE (1 of 2) 1962 OSTEOPOROSIS SCREENING 2008 RSV VACCINE (60+ or ) (1 - 1-dose 75+ series) 2018 INFLUENZA VACCINE (#1) 2025 COVID-19 Vaccine ( - season) 05/24/202501/2021, 11/04/2020 Insurance MEDICARE PART A AND B [facility] [id number] Care Teams Director Machine Relationship Specialty Start Date End Date Emma Dunham MD [address] [place] [id number] PCP - General Family Practice 11/01/20
[2025-08-17 20:00] LABS: Alanine Aminotransferase 21 U/L (6-35); Albumin Level 4.3 g/dL (3.5-5.1); Alkaline Phosphatase 80 U/L (38-126); Anion Gap 7 mmol/L (4-12); Aspartate Amino Transferase 51 U/L (14-36); Bilirubin,Total 0.7 mg/dL (0.2-1.3); Blood Urea Nitrogen 19 mg/dL (7-17); Calcium 9.7 mg/dL (8.4-10.2); Carbon Dioxide 32 mmol/L (22-30); Chloride 101 mmol/L (98-107); Estimated Glomerular Filt Rate 58; Glucose 93 mg/dL (65-110); Potassium 4.3 mmol/L (3.4-5.0); Sodium 140 mmol/L (137-145); Total Protein 7.6 g/dL (6.3-8.2)
[2025-08-17 20:09] LABS: Iron 66 ug/dL (37-170)
[2025-08-17 20:21] LABS: Percent Iron Saturation 24 % (20-50)
[2025-08-17 20:44] LABS: Hematocrit 42.3 % (37.0-47.0); Hemoglobin 13.1 g/dL (12.0-15.0); Immature Granulocyte Percent A 0.3 % (0-0.5); Lymphocytes Absolute Auto 9.82 K/mm3 (0.9-3.2); Mean Corpuscular HGB Conc 31.0 g/dl (32-36); Mean Corpuscular Hemoglobin 31.3 pg (26-34); Mean Corpuscular Volume 101.2 fl (80-100); Nucleated Red Blood Cells Absolute Auto 0.000 K/mm3 (0.0-0.012); Nucleated Red Blood Cells Perc 0.0 % (0.0-0.2); Platelet Count Result 284 k/mm3 (150-375); Red Blood Count 4.18 M/mm3 (4.2-5.4); White Blood Count 15.5 K/mm3 (4.5-10.0)
[2025-08-17 21:08] LABS: Ovalocytes Occasional; Schistocytes None Seen; Smudge Cells PRESENT
== END 2025-08-17 13:54 | disposition home or self-care (01) ==
LOC: ANHGOSHLAB 13:54
PROVIDERS: PCP Nurse Practitioner Family; Visit Provider Nurse Practitioner Family
DX: R60.9 Edema, unspecified (principal); D64.9 Anemia, unspecified; E87.6 Hypokalemia
CPT/HCPCS: 36415; 80053; 83540; 83550; 85025

== ENCOUNTER 2025-08-20 10:51 | Outpatient (RCR) | payer MEDICARE, SELFPAY ==
--- NOTE | 2025-08-20 11:53 | STOPEVAL1 ---
Assessment and note entered by Savannah Steinberg BILLING COLLECTIONS SPECIALIST Evaluation Information Assessment Status Evaluation Reported Pain Level Pain Score 0: Self Report Assessment ST Clinical Summary The patient is an 80 year old female referred for a outpatient swallow evaluation. The patietn sustained a fall at the end of June per family reports and has developed a more forward chin down posture which maybe impacting her swallow function. Patient and spouse state that large pills have become more challenging to swallow. The patient had a head down of (Chin-tuck) posture during the course of the evaluation and was presented the following consistencies: thin liquid via a straw, solid cracker, and puree/applesauce. Oral Stage: Timely oral preparation and transit for all consistencies. Pharyngeal stage: Timely swallow initiation viewed without clinical signs of aspiration across consistencies. Recommend: Evaluation only at this time no further speech services indicated. Thank you for the consult Plan of Care ST Services Indicated No Treatment Frequency and 1x a week /x 1 visit Duration These treatments will address the objective and functional deficits as defined above. The patient will be advanced safely and appropriately in order for the patient to progress towards his/her prior level of function. Additional exercises will be introduced and as well as a comprehensive home exercise program upon discharge, if needed, ?to ensure carryover of functional gains achieved in the clinic. This treatment plan has been reviewed and agreement upon by the patient.
== END 2025-08-20 13:58 | disposition home or self-care (01) ==
LOC: ANHST 10:51
PROVIDERS: PCP Nurse Practitioner Family; Visit Provider Nurse Practitioner Family
DX: M53.82 Other specified dorsopathies, cervical region (principal); R13.10 Dysphagia, unspecified
CPT/HCPCS: 92610

== ENCOUNTER 2025-09-06 15:49 | Outpatient (CLI) | payer MEDICARE, SELFPAY ==
--- OUTSIDE RECORDS SUMMARY | 2025-09-06 18:00 | XMS_ITS | Clinical Summary ---
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 Gender Identity Not on file Sexual Orientation [...] st Contact Info) Description 10/25/2025 1:00 PM ROD MILL OPERATOR Office Visit [facility] Oncology and Hematology [facility] [address] [facility] [address] [place] [address] Jayme Castillo MD [address] [facility] [address] [place] [address] Health Maintenance Due Date Last [...] 11/04/2020 Insurance MEDICARE PART A AND B [facility] [id number] Care Teams Surgery Nurse Relationship Specialty Start Date End Date Emma Dunham MD [address] [place] [address] PCP - General Family Practice 11/01/20
[2025-09-06 18:50] LABS: Hematocrit 43.0 % (37.0-47.0); Hemoglobin 13.8 g/dL (12.0-15.0); Mean Corpuscular HGB Conc 32.1 g/dl (32-36); Mean Corpuscular Hemoglobin 32.2 pg (26-34); Mean Corpuscular Volume 100.5 fl (80-100); Platelet Count Result 236 k/mm3 (150-375); Red Blood Count 4.28 M/mm3 (4.2-5.4); White Blood Count 15.2 K/mm3 (4.5-10.0)
[2025-09-06 19:04] LABS: Alanine Aminotransferase 23 U/L (6-35); Albumin Level 4.4 g/dL (3.5-5.1); Alkaline Phosphatase 73 U/L (38-126); Anion Gap 4 mmol/L (4-12); Aspartate Amino Transferase 47 U/L (14-36); Bilirubin,Total 0.7 mg/dL (0.2-1.3); Blood Urea Nitrogen 25 mg/dL (7-17); Calcium 10.0 mg/dL (8.4-10.2); Carbon Dioxide 30 mmol/L (22-30); Chloride 104 mmol/L (98-107); Estimated Glomerular Filt Rate 59; Glucose 106 mg/dL (65-110); Potassium 3.8 mmol/L (3.4-5.0); Sodium 138 mmol/L (137-145); Total Protein 7.9 g/dL (6.3-8.2)
[2025-09-06 19:57] LABS: Basophils Absolute Manual 0.15 K/mm3 (0.0-0.1); Basophils Percent Manual 1 % (0-1); Lymphocytes Absolute Manual 8.20 K/mm3 (1.1-4.5); Lymphocytes Percent Manual 54.0 % (18-44); Monocytes Absolute Manual 0.45 K/mm3 (0.1-0.90); Monocytes Percent Manual 3 % (3-9); Neutrophils Percent Manual 42 % (46-73); Total Cells Counted 100
[2025-09-06 19:58] LABS: Hypochromasia 1+; Schistocytes None Seen
[2025-09-06 19:59] LABS: Band Neutrophils Percent 0 % (0-6); Neutrophils Absolute Manual 6.38 K/mm3 (1.3-6.7)
== END 2025-09-06 15:50 | disposition home or self-care (01) ==
LOC: ANHGOSHLAB 15:50
PROVIDERS: PCP Nurse Practitioner Family; Visit Provider Nurse Practitioner Family
DX: R60.9 Edema, unspecified (principal); D72.829 Elevated white blood cell count, unspecified; I10 Essential (primary) hypertension; E87.6 Hypokalemia
CPT/HCPCS: 36415; 80053; 85025